=== PATIENT | female | born 1965 | race Caucasian/White ===

== ENCOUNTER 2017-12-18 14:11 | Day surgery (SDC) | payer OTHER, BC ==
[~2017-12-18] VITALS: Ht 157.5 cm; Wt 59.0 kg
[~2017-12-18 14:11] MED LIST: BACL10 PO; GABA300 PO; GABA600 PO; IBUP800 PO; OXYACE5T PO; TECFIDERA240 MG PO
== END 2017-12-18 16:28 | disposition home or self-care (01) ==
LOC: ORSCSDS 14:11
PROVIDERS: Surgery
PROC: 0DBL8ZX Excision of Transverse Colon, Via Natural or Artificial Opening Endoscopic, Diagnostic (ICD-10-PCS; principal; 2017-12-18 15:30)
DX: Z12.11 Encounter for screening for malignant neoplasm of colon (principal); D12.3 Benign neoplasm of transverse colon; G35 Multiple sclerosis; J45.909 Unspecified asthma, uncomplicated; Z79.899 Other long term (current) drug therapy
CPT/HCPCS: 88305

== ENCOUNTER → 2019-03-04 | Outpatient (CLI) | payer OTHER, BC | LOC: LAB SHORT 17:48 → LAB EV 17:48 | DX: N30.01 Acute cystitis with hematuria (principal) | CPT/HCPCS: 87086 ==